=== PATIENT | male | born 1995 | race Caucasian/White ===

== ENCOUNTER 2024-01-12 07:42 | Emergency (ER) | payer SELFPAY ==
[2024-01-12] MEDS ORDERED: HYDROcodone/Acetaminophen 5/325 mg Tablet ONE (08:36)
== END 2024-01-12 10:03 | disposition home or self-care (01) ==
LOC: ERS 07:42
DX: S02.2XXA Fracture of nasal bones, initial encounter for closed fracture (principal); F17.220 Nicotine dependence, chewing tobacco, uncomplicated; F17.290 Nicotine dependence, other tobacco product, uncomplicated; Y00.XXXA Assault by blunt object, initial encounter; Y93.89 Activity, other specified
CPT/HCPCS: 70450; 70486; 72125

== ENCOUNTER 2024-03-10 08:41 | Emergency (ER) | payer SELFPAY ==
[2024-03-10] MEDS ORDERED: Ondansetron ODT 4 MG TAB ONE ×2 (10:22→10:23)
[2024-03-10] MEDS ORDERED: Meclizine HCl 25 MG TAB ONE (10:22)
== END 2024-03-10 11:06 | disposition home or self-care (01) ==
LOC: ERS 08:41
DX: R42 Dizziness and giddiness (principal); R29.700 NIHSS score 0; F17.290 Nicotine dependence, other tobacco product, uncomplicated; Z55.0 Illiteracy and low-level literacy
CPT/HCPCS: 93005; 99283; Q0162